=== PATIENT | female | born 1975 | race Caucasian/White ===

== ENCOUNTER 2021-12-17 07:49 | Day surgery (SDC) | payer OTHER ==
[~2021-12-17] VITALS: Ht 167.6 cm; Wt 106.6 kg
[~2021-12-17 07:49] MED LIST: CLINDAMYCIN PHOS 600 MG/ D5W 50 ML PREMIX IV ONE
[2021-12-17] MEDS ORDERED: OXYMETAZOLINE HCL 0.05% NASAL SPRAY NS ONE (09:46)
[2021-12-17] MEDS ORDERED: fentaNYL CITRATE 250 MCG/5 ML AMP ONE (09:46)
[2021-12-17] MEDS ORDERED: SEVOFLURANE 15 MIN GAS INH ONE (09:46)
[2021-12-17] MEDS ORDERED: LR 1,000 ML IV.SOLN IV ONE (09:46)
[2021-12-17] MEDS ORDERED: LIDOCAINE/EPI MPF 1%1:200000 30 ML VIAL ONE (09:46)
[2021-12-17] MEDS ORDERED: ONDANSETRON HCL 4 MG/2 ML VIAL ONE ×2 (09:46→17:21)
[2021-12-17] MEDS ORDERED: NS 1000 ML IV.SOLN IV ONE (09:46)
[2021-12-17] MEDS ORDERED: PROPOFOL 200MG/ 20ML VIAL (DIPRIVAN) IV ONE (09:46)
[2021-12-17] MEDS ORDERED: NS IRRIG SOLN 1000 ML IR ONE (09:46)
[2021-12-17] MEDS ORDERED: ROCURONIUM BROMIDE 10 MG/ML (ZEMURON) ONE (09:46)
[2021-12-17] MEDS ORDERED: hydrALAZINE HCL 20 MG/ML VIAL IVP PRN (13:15)
[2021-12-17] MEDS ORDERED: LABETALOL 100 MG/ 20ML VIAL IVP PRN (13:15)
[2021-12-17] MEDS ORDERED: HYDROmorphone 1 MG/ML INJ. CARTRIDGE IVP PRN (13:15)
[2021-12-17] MEDS ORDERED: LR 1,000 ML IV SCH (13:15)
[2021-12-17] MEDS: METOCLOPRAMIDE HCL 10 MG/2 ML VIAL IVP PRN ×2 (13:18→14:21)
[2021-12-17] MEDS: ONDANSETRON HCL 4 MG/2 ML VIAL IVP PRN ×2 (13:18→17:20)
[2021-12-17] MEDS ORDERED: METOCLOPRAMIDE HCL 10 MG/2 ML VIAL ONE (13:20)
[2021-12-17] MEDS ORDERED: HYDROcodone/ACETAMIN 5-325 MG TAB (NORCO/ VICODIN) PO PRN (13:30)
[2021-12-17] MEDS ORDERED: ONDANSETRON 4 MG ODT TAB PO PRN (13:30)
[2021-12-17 17:41] VITALS: BP_SYST 136
== END 2021-12-17 17:53 | disposition home or self-care (01) ==
LOC: SDS 07:49 → SMU 08:03 → SDS 17:53
PROVIDERS: ATTEND Otolaryngology
DX: J32.4 Chronic pansinusitis (principal); J33.0 Polyp of nasal cavity; J45.909 Unspecified asthma, uncomplicated; E66.01 Morbid (severe) obesity due to excess calories; Z88.1 Allergy status to other antibiotic agents; Z68.37 Body mass index [BMI] 37.0-37.9, adult; Z79.899 Other long term (current) drug therapy; Z20.822 Contact with and (suspected) exposure to COVID-19
CPT/HCPCS: 36415 ×2; 87426; 31296; 31267; 31259; 84702; 88305; J3490; J2765; J2405; J2704; J3010; J7120; J7030; C1726 ×2